=== PATIENT | female | born 1940 | race African-American/Black ===

== ENCOUNTER 2017-10-10 18:26 | Inpatient (IN) ==
[2017-10-10] MEDS ORDERED: ONDANSETRON 4 MG/2 ML VIAL IV STA (20:31)
[2017-10-10] MEDS ORDERED: MORPHINE 4 MG/1 ML VIAL IV STA (20:31)
[2017-10-10] MEDS ORDERED: SODIUM CHLORIDE 0.9% 500 ML IV STA (20:31)
[2017-10-10] MEDS ORDERED: PANTOPRAZOLE 40 MG VIAL IV STA (20:31)
[2017-10-10] MEDS ORDERED: ALUM/MAG/SIMETH/LIDO VISC 1:1 30 ML BOTTLE PO STA (20:31)
[2017-10-10 21:28] LABS: Basophils # 0.1 10*3/uL (0.0-0.2); Basophils % 0.5 % (0.0-0.8); Eosinophils # 0.2 10*3/uL (0.0-0.87); Eosinophils % 2.1 % (0.00-10.9); Hematocrit 36.2 VOL% (35.7-47.0); Hemoglobin 11.1 GM/DL (12.0-16.0); Immature Granulocytes % 0.5 %; Immature Granulocytes Absolute 0.05 #; Lymphocytes # 3.1 10*3/uL (1.4-4.0); Lymphocytes % 32.1 % (21.3-54.2); Mean Corpuscular HGB Conc 30.7 GM/DL (32-36); Mean Corpuscular Hemoglobin 29 PG (27-34); Mean Platelet Volume 10.9 FL (9.6-12.0); Monocytes # 0.7 10*3/uL (0.11-0.8); Monocytes % 6.6 % (1.7-12.7); Neutrophils # 5.7 10*3/uL (1.4-7.4); Neutrophils % 58.2 % (38.7-73.9); Platelet Count 176 T/CUMM (130-400); Red Blood Count 3.81 MC/CUMM (3.8-5.5); Red Cell Distribution Width 14.3 % (9.3-17.3); White Blood Count 9.8 T/CUMM (4-12)
[2017-10-10 21:50] LABS: Albumin 3.4 G/DL (3.4-5.0); Bilirubin,Total 0.4 MG/DL (0.2-1.0); Osmolality,Calculated 301.1 MOS/KG (273-304); Potassium 3.6 MMOL/L (3.5-5.1); Troponin I Only 0.031 NG/ML (0.00-0.045)
[2017-10-10 22:01] LABS: Lactic Acid 1.9 MMOL/L (0.4-2.0)
[2017-10-10 22:40] LABS: Apearance,Urine Slightly Hazy (Clear); Bacteria,Urine Occasional /HPF (Few); Bilirubin,Urine Negative (Negative); Blood, Urine Negative (Negative); Glucose,Urine (UA) Negative (Negative); Hyaline Casts,Urine 3 /LPF (0-3); Ketones,Urine Negative (Negative); Nitrite,Urine Negative (Negative); Protein,Urine Negative; Squamous Epithelial Cell,Urine Occasional /HPF (0-10); Urine Color Yellow (Yellow); Urine Specific Gravity 1.012 (1.001-1.035); Urine Urobilinogen < 2.0 EU/DL (0.2-1.0); WBC,Urine 9 /HPF (0-6)
[2017-10-10] MEDS ORDERED: ONDANSETRON 4 MG/2 ML VIAL IV PRN (23:28)
[2017-10-10] MEDS ORDERED: FUROSEMIDE 20 MG TABLET PO SCH (23:45)
[2017-10-11] MEDS: HYDROXYCHLOROQUINE 200 MG TABLET PO SCH ×3 (02:48→21:13)
[2017-10-11] MEDS: LIOTHYRONINE 25 MCG TABLET PO SCH ×4 (02:48→21:12)
[2017-10-11] MEDS: FLUTICASONE 50 MCG NASAL SPRAY 16 GM BOTTLE BOTH NARES SCH ×3 (02:48→21:14)
[2017-10-11] MEDS: POTASSIUM CHLORIDE 20 MEQ TABLET PO SCH ×3 (02:48→21:13)
[2017-10-11] MEDS: SODIUM CHLORIDE 0.9% 1,000 ML IV SCH ×2 (02:48→16:52)
[2017-10-11] MEDS: MONTELUKAST 10 MG TABLET PO SCH ×2 (02:48→21:13)
[2017-10-11] MEDS: cefTRIAXone 1,000 MG in SYRINGE 1 EACH IV SCH (02:49)
[2017-10-11 05:32] LABS: Basophils % 0.6 % (0.0-0.8); Eosinophils # 0.2 10*3/uL (0.0-0.87); Eosinophils % 2.7 % (0.00-10.9); Hematocrit 31.6 VOL% (35.7-47.0); Hemoglobin 9.9 GM/DL (12.0-16.0); Immature Granulocytes % 0.3 %; Immature Granulocytes Absolute 0.02 #; Lymphocytes # 2.6 10*3/uL (1.4-4.0); Lymphocytes % 38.9 % (21.3-54.2); Mean Corpuscular HGB Conc 31.3 GM/DL (32-36); Mean Corpuscular Hemoglobin 29 PG (27-34); Mean Corpuscular Volume 91.6 FL (87-102); Mean Platelet Volume 10.6 FL (9.6-12.0); Monocytes # 0.5 10*3/uL (0.11-0.8); Neutrophils # 3.3 10*3/uL (1.4-7.4); Neutrophils % 50.5 % (38.7-73.9); Platelet Count 154 T/CUMM (130-400); Red Blood Count 3.45 MC/CUMM (3.8-5.5); Red Cell Distribution Width 14.4 % (9.3-17.3); White Blood Count 6.6 T/CUMM (4-12)
[2017-10-11 06:01] LABS: Calcium 8.5 MG/DL (8.5-10.1); Potassium 3.8 MMOL/L (3.5-5.1)
[2017-10-11] MEDS: LEVOTHYROXINE 75 MCG TABLET PO SCH (06:25)
[2017-10-11] MEDS: ALLOPURINOL 100 MG TABLET PO SCH (08:17)
[2017-10-11] MEDS: PANTOPRAZOLE 40 MG TABLET PO SCH (08:18)
[2017-10-11] MEDS: SERTRALINE 100 MG TABLET PO SCH (08:18)
[2017-10-11] MEDS: HYDROCORTISONE 10 MG TABLET PO SCH ×2 (08:18→21:13)
[2017-10-11] MEDS ORDERED: metOLazone 5 MG TABLET PO SCH (09:00)
[2017-10-11] MEDS ORDERED: PANTOPRAZOLE 40 MG TABLET PO SCH (09:00)
[2017-10-11] MEDS ORDERED: MELOXICAM 7.5 MG TABLET PO SCH (09:00)
[2017-10-12] MEDS: cefTRIAXone 1,000 MG in SYRINGE 1 EACH IV SCH (01:02)
[2017-10-12 04:57] LABS: Basophils % 0.4 % (0.0-0.8); Eosinophils # 0.1 10*3/uL (0.0-0.87); Eosinophils % 1.4 % (0.00-10.9); Hematocrit 28.9 VOL% (35.7-47.0); Hemoglobin 8.8 GM/DL (12.0-16.0); Immature Granulocytes % 0.4 %; Immature Granulocytes Absolute 0.02 #; Lymphocytes # 1.4 10*3/uL (1.4-4.0); Lymphocytes % 27.2 % (21.3-54.2); Mean Corpuscular HGB Conc 30.4 GM/DL (32-36); Mean Corpuscular Hemoglobin 29 PG (27-34); Mean Corpuscular Volume 94.4 FL (87-102); Mean Platelet Volume 10.2 FL (9.6-12.0); Monocytes # 0.3 10*3/uL (0.11-0.8); Monocytes % 5.8 % (1.7-12.7); Neutrophils # 3.2 10*3/uL (1.4-7.4); Neutrophils % 64.8 % (38.7-73.9); Platelet Count 132 T/CUMM (130-400); Red Blood Count 3.06 MC/CUMM (3.8-5.5); Red Cell Distribution Width 14.2 % (9.3-17.3)
[2017-10-12 05:30] LABS: Calcium 7.8 MG/DL (8.5-10.1); Osmolality,Calculated 293.3 MOS/KG (273-304); Potassium 5.2 MMOL/L (3.5-5.1)
[2017-10-12] MEDS: LEVOTHYROXINE 75 MCG TABLET PO SCH (06:27)
[2017-10-12] MEDS: PANTOPRAZOLE 40 MG TABLET PO SCH (08:51)
[2017-10-12] MEDS: FLUTICASONE 50 MCG NASAL SPRAY 16 GM BOTTLE BOTH NARES SCH ×2 (08:51→21:49)
[2017-10-12] MEDS: HYDROXYCHLOROQUINE 200 MG TABLET PO SCH ×2 (08:51→21:49)
[2017-10-12] MEDS: ALLOPURINOL 100 MG TABLET PO SCH (08:51)
[2017-10-12] MEDS: LIOTHYRONINE 25 MCG TABLET PO SCH ×2 (08:51→21:48)
[2017-10-12] MEDS: HYDROCORTISONE 10 MG TABLET PO SCH ×2 (08:52→21:49)
[2017-10-12] MEDS: SERTRALINE 100 MG TABLET PO SCH (08:52)
[2017-10-12] MEDS: SODIUM CHLORIDE 0.9% 1,000 ML IV SCH ×3 (17:43→19:24)
[2017-10-12] MEDS: MONTELUKAST 10 MG TABLET PO SCH (21:48)
[2017-10-13] MEDS: cefTRIAXone 1,000 MG in SYRINGE 1 EACH IV SCH (01:51)
[2017-10-13 03:05] LABS: Basophils % 0.6 % (0.0-0.8); Eosinophils # 0.1 10*3/uL (0.0-0.87); Eosinophils % 2.1 % (0.00-10.9); Hematocrit 28.7 VOL% (35.7-47.0); Immature Granulocytes % 0.4 %; Immature Granulocytes Absolute 0.02 #; Lymphocytes # 1.3 10*3/uL (1.4-4.0); Lymphocytes % 27.1 % (21.3-54.2); Mean Corpuscular HGB Conc 31.4 GM/DL (32-36); Mean Corpuscular Hemoglobin 29 PG (27-34); Mean Platelet Volume 11.4 FL (9.6-12.0); Monocytes # 0.2 10*3/uL (0.11-0.8); Monocytes % 5.1 % (1.7-12.7); Neutrophils # 3.1 10*3/uL (1.4-7.4); Neutrophils % 64.7 % (38.7-73.9); Platelet Count 139 T/CUMM (130-400); Red Blood Count 3.12 MC/CUMM (3.8-5.5); Red Cell Distribution Width 14.3 % (9.3-17.3); White Blood Count 4.7 T/CUMM (4-12)
[2017-10-13 03:37] LABS: Calcium 7.9 MG/DL (8.5-10.1); Osmolality,Calculated 294.1 MOS/KG (273-304); Potassium 4.4 MMOL/L (3.5-5.1)
[2017-10-13] MEDS: LEVOTHYROXINE 75 MCG TABLET PO SCH (06:36)
[2017-10-13] MEDS: SODIUM CHLORIDE 0.9% 1,000 ML IV SCH (08:18)
[2017-10-13] MEDS: FLUTICASONE 50 MCG NASAL SPRAY 16 GM BOTTLE BOTH NARES SCH (10:02)
[2017-10-13] MEDS: HYDROXYCHLOROQUINE 200 MG TABLET PO SCH (10:02)
[2017-10-13] MEDS: SERTRALINE 100 MG TABLET PO SCH (10:02)
[2017-10-13] MEDS: LIOTHYRONINE 25 MCG TABLET PO SCH (10:02)
[2017-10-13] MEDS: HYDROCORTISONE 10 MG TABLET PO SCH (10:03)
[2017-10-13] MEDS: ALLOPURINOL 100 MG TABLET PO SCH (10:03)
[2017-10-13] MEDS: PANTOPRAZOLE 40 MG TABLET PO SCH (10:03)
[2017-10-13 11:14] VITALS: BP 142/56
== END 2017-10-13 13:55 | disposition home health service (06) | DRG 683 ==
LOC: N.ED 18:26 → SUATTDRO 23:27 → N.EDINP 23:27 → N.3E 10-11 01:16
PROVIDERS: ADMIT Internal Medicine; ATTEND Internal Medicine

== ENCOUNTER 2018-12-19 10:46 | Inpatient (IN) ==
[2018-12-19 12:36] LABS: Basophils % 0.1 % (0.0-0.8); Eosinophils % 0.5 % (0.00-10.9); Hematocrit 27.4 VOL% (35.7-47.0); Hemoglobin 8.4 GM/DL (12.0-16.0); Immature Granulocytes % 0.7 %; Immature Granulocytes Absolute 0.05 #; Lymphocytes # 2.4 10*3/uL (1.4-4.0); Lymphocytes % 32.4 % (21.3-54.2); Mean Corpuscular HGB Conc 30.7 GM/DL (32-36); Mean Corpuscular Volume 96.5 FL (87-102); Mean Platelet Volume 10.9 FL (9.6-12.0); Monocytes % 5.4 % (1.7-12.7); NRBC # 0.05 10*3/uL; Neutrophils % 60.9 % (38.7-73.9); Platelet Count 113 T/CUMM (130-400); Red Blood Count 2.84 MC/CUMM (3.8-5.5); Red Cell Distribution Width 21.2 % (9.3-17.3); White Blood Count 7.5 T/CUMM (4-12)
[2018-12-19 12:44] LABS: INR 1.1; PT Patient Result 11.5 SECS; Partial Thromboplastin Time 26.4 SECS (0-40)
[2018-12-19 12:56] LABS: Albumin 2.5 G/DL (3.4-5.0); Bilirubin,Total 0.7 MG/DL (0.2-1.0); Calcium 8.4 MG/DL (8.5-10.1); Osmolality,Calculated 281.4 MOS/KG (273-304); Total Protein 6.4 G/DL (6.4-8.3)
[2018-12-19] MEDS ORDERED: POTASSIUM CHLORIDE 20 MEQ TABLET PO STA (14:27)
[2018-12-19] MEDS ORDERED: BISACODYL 5 MG TABLET PO PRN (15:02)
[2018-12-19] MEDS ORDERED: PROMETHAZINE 25 MG TABLET PO PRN (15:02)
[2018-12-19] MEDS ORDERED: DOCUSATE SODIUM 100 MG CAPSULE PO PRN (15:02)
[2018-12-19] MEDS ORDERED: ONDANSETRON 4 MG/2 ML VIAL IV PRN (15:02)
[2018-12-19] MEDS ORDERED: DICYCLOMINE 10 MG CAPSULE PO PRN (16:52)
[2018-12-19] MEDS: HYDROCORTISONE 10 MG TABLET PO SCH (20:51)
[2018-12-19] MEDS: HYDROXYCHLOROQUINE 200 MG TABLET PO SCH (20:51)
[2018-12-19] MEDS: MONTELUKAST 10 MG TABLET PO SCH (20:51)
[2018-12-20 05:59] LABS: Hematocrit 20.6 VOL% (35.7-47.0); Immature Granulocytes % 0.7 %; Immature Granulocytes Absolute 0.05 #; Lymphocytes # 2.2 10*3/uL (1.4-4.0); Lymphocytes % 32.3 % (21.3-54.2); Mean Corpuscular HGB Conc 31.6 GM/DL (32-36); Mean Corpuscular Volume 94.9 FL (87-102); Mean Platelet Volume 9.2 FL (9.6-12.0); Monocytes % 5.6 % (1.7-12.7); NRBC # 0.02 10*3/uL; Neutrophils % 61.4 % (38.7-73.9); Red Blood Count 2.17 MC/CUMM (3.8-5.5); White Blood Count 6.7 T/CUMM (4-12)
[2018-12-20 06:05] LABS: Hemoglobin 6.5 GM/DL (12.0-16.0); Platelet Count 85 T/CUMM (130-400)
[2018-12-20 06:17] LABS: Hypochromasia 1+; Microcytosis 2+
[2018-12-20 06:18] LABS: Platelet Estimate Decreased; Target Cells Few; Tear Drop Cells Few
[2018-12-20 06:19] LABS: Ovalocytes 1+; Polychromasia Few
[2018-12-20 06:53] LABS: Calcium 7.8 MG/DL (8.5-10.1); Osmolality,Calculated 280.5 MOS/KG (273-304)
[2018-12-20] MEDS: LEVOTHYROXINE 88 MCG TABLET PO SCH (07:21)
[2018-12-20] MEDS ORDERED: SODIUM CHLORIDE 0.9% 1,000 ML IV PRN (08:35)
[2018-12-20] MEDS: PANTOPRAZOLE 40 MG TABLET PO SCH (09:25)
[2018-12-20] MEDS: ALLOPURINOL 100 MG TABLET PO SCH (10:13)
[2018-12-20] MEDS: HYDROCORTISONE 10 MG TABLET PO SCH ×2 (10:14→20:41)
[2018-12-20] MEDS: SERTRALINE 100 MG TABLET PO SCH (10:14)
[2018-12-20] MEDS: HYDROXYCHLOROQUINE 200 MG TABLET PO SCH ×2 (10:14→20:41)
[2018-12-20] MEDS: MULTIVITAMIN (CENTRUM) TABLET PO SCH (10:14)
[2018-12-20] MEDS: IRON (CARBONYL)/VIT C/B12/FA TABLET PO SCH (10:14)
[2018-12-20] MEDS ORDERED: HEPARIN 10,000 UNIT/10 ML VIAL IV PRN (12:13)
[2018-12-20] MEDS: MONTELUKAST 10 MG TABLET PO SCH (20:41)
[2018-12-21 05:48] LABS: Basophils % 0.1 % (0.0-0.8); Eosinophils # 0.1 10*3/uL (0.0-0.87); Hematocrit 29.2 VOL% (35.7-47.0); Immature Granulocytes % 0.7 %; Immature Granulocytes Absolute 0.05 #; Lymphocytes # 2.1 10*3/uL (1.4-4.0); Mean Corpuscular HGB Conc 32.5 GM/DL (32-36); Mean Corpuscular Volume 93.6 FL (87-102); Mean Platelet Volume 12.1 FL (9.6-12.0); Monocytes % 6.4 % (1.7-12.7); NRBC # 0.02 10*3/uL; Neutrophils % 60.8 % (38.7-73.9); Red Cell Distribution Width 18.8 % (9.3-17.3); White Blood Count 6.8 T/CUMM (4-12)
[2018-12-21 05:49] LABS: Hemoglobin 9.5 GM/DL (12.0-16.0); Platelet Count 59 T/CUMM (130-400); Red Blood Count 3.12 MC/CUMM (3.8-5.5)
[2018-12-21] MEDS ORDERED: ceFAZolin 1,000 MG in SYRINGE 1 EACH IV ONE (06:00)
[2018-12-21 06:11] LABS: Platelet Estimate Decreased
[2018-12-21 06:12] LABS: Hypochromasia 2+; Ovalocytes 1+
[2018-12-21 06:39] LABS: Calcium 7.3 MG/DL (8.5-10.1)
[2018-12-21] MEDS: LEVOTHYROXINE 88 MCG TABLET PO SCH (06:45)
[2018-12-21] MEDS ORDERED: SODIUM CHLORIDE 0.9% 1,000 ML IV PRN (07:29)
[2018-12-21 09:29] LABS: INR 1.1; PT Patient Result 12.4 SECS; Partial Thromboplastin Time 32.6 SECS (0-40)
[2018-12-21] MEDS ORDERED: PROPOFOL 200 MG/20 ML VIAL IV ONE (10:00)
[2018-12-21] MEDS ORDERED: LIDOCAINE 2% 5 ML VIAL ONE (10:00)
[2018-12-21] MEDS: SODIUM CHLORIDE 0.9% 500 ML IV SCH (11:02)
[2018-12-21] MEDS: MULTIVITAMIN (CENTRUM) TABLET PO SCH (11:11)
[2018-12-21] MEDS: IRON (CARBONYL)/VIT C/B12/FA TABLET PO SCH (11:11)
[2018-12-21] MEDS: PANTOPRAZOLE 40 MG TABLET PO SCH (11:11)
[2018-12-21] MEDS: HYDROCORTISONE 10 MG TABLET PO SCH ×2 (11:11→21:36)
[2018-12-21] MEDS: SERTRALINE 100 MG TABLET PO SCH (11:11)
[2018-12-21] MEDS: ALLOPURINOL 100 MG TABLET PO SCH (11:11)
[2018-12-21] MEDS: ACETAMINOPHEN 325 MG TABLET PO PRN ×2 (12:12→19:18)
[2018-12-21] MEDS: MONTELUKAST 10 MG TABLET PO SCH (21:36)
[2018-12-22 05:44] LABS: Calcium 7.3 MG/DL (8.5-10.1); Osmolality,Calculated 270.8 MOS/KG (273-304); Prealbumin 12.1 MG/DL (20-40)
[2018-12-22] MEDS ORDERED: DEXTROSE 50% 25 GM/50 ML VIAL IV PRN ×2 (06:43→09:27)
[2018-12-22] MEDS ORDERED: DEXTROSE 10% 250 ML IV PRN (06:50)
[2018-12-22 07:34] LABS: Basophils % 0.3 % (0.0-0.8); Hemoglobin 9.2 GM/DL (12.0-16.0); Immature Granulocytes % 0.5 %; Immature Granulocytes Absolute 0.04 #; Lymphocytes # 1.5 10*3/uL (1.4-4.0); Lymphocytes % 19.6 % (21.3-54.2); Mean Corpuscular HGB Conc 31.7 GM/DL (32-36); Mean Corpuscular Volume 94.2 FL (87-102); Mean Platelet Volume 10.6 FL (9.6-12.0); Monocytes % 4.9 % (1.7-12.7); Neutrophils % 74.7 % (38.7-73.9); Platelet Count 151 T/CUMM (130-400); Red Blood Count 3.08 MC/CUMM (3.8-5.5); Red Cell Distribution Width 18.6 % (9.3-17.3); White Blood Count 7.6 T/CUMM (4-12)
[2018-12-22] MEDS: LEVOTHYROXINE 88 MCG TABLET PO SCH (07:49)
[2018-12-22] MEDS ORDERED: GLUCAGON 1 MG VIAL IM PRN (09:27)
[2018-12-22] MEDS ORDERED: POTASSIUM CHLORIDE 20 MEQ TABLET PO PRN (09:30)
[2018-12-22 10:05] LABS: Hepatitis B Core IgM Quant 0.09 Index; Hepatitis B Surface Ag Quant < 0.10 Index; Hepatitis B Surface Ag Result Negative (Negative); Hepatitis C Virus Ab Result Negative (Negative)
[2018-12-22] MEDS ORDERED: POTASSIUM CHLORIDE 20 MEQ/15 ML UDCUP PO ONE (11:30)
[2018-12-22] MEDS ORDERED: BISACODYL 5 MG TABLET PEG PRN (12:30)
[2018-12-22] MEDS ORDERED: ACETAMINOPHEN 325 MG/10.15 ML UDCUP PEG PRN (12:30)
[2018-12-22] MEDS ORDERED: PROMETHAZINE 25 MG TABLET PEG PRN (12:30)
[2018-12-22] MEDS: IRON (CARBONYL)/VIT C/B12/FA TABLET PO SCH (12:46)
[2018-12-22] MEDS: SODIUM CHLORIDE 0.9% 500 ML IV SCH (12:46)
[2018-12-22] MEDS: MULTIVITAMIN (CENTRUM) TABLET PO SCH (12:47)
[2018-12-22] MEDS: PANTOPRAZOLE 40 MG TABLET PO SCH (12:47)
[2018-12-22] MEDS: SERTRALINE 100 MG TABLET PO SCH (12:47)
[2018-12-22] MEDS: HYDROCORTISONE 10 MG TABLET PO SCH (12:47)
[2018-12-22] MEDS: ALLOPURINOL 100 MG TABLET PO SCH (12:48)
[2018-12-22] MEDS: ALLOPURINOL 100 MG TABLET PEG SCH (12:54)
[2018-12-22] MEDS: LANSOPRAZOLE ODT 30 MG TABLET PO SCH (12:54)
[2018-12-22] MEDS: SERTRALINE 100 MG TABLET PEG SCH (12:54)
[2018-12-22] MEDS: HYDROCORTISONE 10 MG TABLET PEG SCH (12:54)
[2018-12-22] MEDS: MULTIVITAMIN LIQUID (CENTRUM) 60 ML BOTTLE PEG SCH (12:55)
[2018-12-22] MEDS ORDERED: TUBERCULIN SKIN TEST 0.1 ML SYRINGE INTRADERM ONE (15:49)
[2018-12-22] MEDS ORDERED: HYDROCORTISONE 10 MG TABLET PEG SCH (21:00)
[2018-12-22] MEDS ORDERED: MONTELUKAST 10 MG TABLET PEG SCH (21:00)
[2018-12-22] MEDS ORDERED: POLYVINYL ALCOHOL 1.4% OPH SOLN 15 ML BOTTLE BOTH EYES PRN (22:04)
[2018-12-23 05:45] LABS: Basophils % 0.1 % (0.0-0.8); Hematocrit 28.8 VOL% (35.7-47.0); Hemoglobin 9.5 GM/DL (12.0-16.0); Immature Granulocytes % 0.9 %; Immature Granulocytes Absolute 0.08 #; Lymphocytes % 11.8 % (21.3-54.2); Mean Corpuscular Volume 91.7 FL (87-102); Mean Platelet Volume 10.5 FL (9.6-12.0); Monocytes % 4.3 % (1.7-12.7); Neutrophils % 82.9 % (38.7-73.9); Platelet Count 115 T/CUMM (130-400); Red Blood Count 3.14 MC/CUMM (3.8-5.5); Red Cell Distribution Width 18.4 % (9.3-17.3); White Blood Count 8.8 T/CUMM (4-12)
[2018-12-23] MEDS ORDERED: LEVOTHYROXINE 88 MCG TABLET PEG SCH (06:30)
[2018-12-23 07:35] VITALS: BP 111/52
[2018-12-23] MEDS: HYDROCORTISONE 10 MG TABLET PEG SCH (09:22)
[2018-12-23] MEDS: IRON (CARBONYL)/VIT C/B12/FA TABLET PO SCH (09:22)
[2018-12-23] MEDS: HYDROXYCHLOROQUINE 200 MG TABLET PO SCH (09:23)
[2018-12-23] MEDS: LANSOPRAZOLE ODT 30 MG TABLET PO SCH (09:23)
[2018-12-23] MEDS: MULTIVITAMIN LIQUID (CENTRUM) 60 ML BOTTLE PEG SCH (09:23)
[2018-12-23] MEDS: ALLOPURINOL 100 MG TABLET PEG SCH (09:23)
[2018-12-23] MEDS: SERTRALINE 100 MG TABLET PEG SCH (09:23)
== END 2018-12-23 11:55 | disposition home health service (06) | DRG 640 ==
LOC: N.ED 10:46 → N.EDINP 10:46 → N.2E 16:53
PROVIDERS: ADMIT Internal Medicine; ATTEND Internal Medicine
PROC: EGDWPEG (ICD-10-PCS; 2018-12-21 08:50)